=== PATIENT | female | born 1975 ===

== ENCOUNTER 2021-08-06 09:06 | Outpatient (CLI) | payer OTHER | END 2021-08-06 09:12 | disposition home or self-care (01) | LOC: EKG 09:06 → LAB 09:06 | PROVIDERS: ATTEND Obstetrics & Gynecology | DX: N91.1 Secondary amenorrhea (principal); Z20.822 Contact with and (suspected) exposure to COVID-19; R07.89 Other chest pain ==

== ENCOUNTER 2021-08-18 07:15 | Inpatient (IN) | payer OTHER ==
[~2021-08-18] VITALS: Ht 149.9 cm; Wt 59.0 kg
[2021-08-18] MEDS ORDERED: LEVOTHYROXINE25 MCG PO (07:46)
[2021-08-20] MEDS ORDERED: FERROUS SULFAT325 M2 (09:33)
== END 2021-08-21 09:55 | disposition home or self-care (01) | DRG 743 ==
LOC: OB/GYN 08-19 06:25 → O/R 08-19 06:25 → OB/GYN 08-19 07:00
PROVIDERS: ADMIT Obstetrics & Gynecology; ATTEND Obstetrics & Gynecology
PROC: 0UN90ZZ Release Uterus, Open Approach (ICD-10-PCS; 2021-08-19)
PROC: 0UT90ZL Resection of Uterus, Supracervical, Open Approach (ICD-10-PCS; principal; 2021-08-19 07:00)
DX: N80.0 Endometriosis of uterus (principal); N73.6 Female pelvic peritoneal adhesions (postinfective); Z20.822 Contact with and (suspected) exposure to COVID-19